=== PATIENT | female | born 1965 | race African-American/Black ===

== ENCOUNTER 2017-08-06 16:51 | Inpatient (IN) ==
[2017-08-06] MEDS ORDERED: ALBUTEROL/IPRATROPIUM 3 ML NEB RESP TX STA (17:22)
[2017-08-06] MEDS ORDERED: SODIUM CHLORIDE 0.9% 500 ML IV STA (17:22)
[2017-08-06 18:55] LABS: Apearance,Urine CLOUDY (Clear); Bilirubin,Urine Negative (Negative); Blood, Urine Large mg/dL (Negative); Glucose,Urine (UA) Negative (Negative); Ketones,Urine 5 mg/dL (Negative); Nitrite,Urine Negative (Negative); Protein,Urine 100 MG/DL; RBC,Urine 26429 /HPF (0-4); Urine Color Red (Yellow); Urine Specific Gravity 1.011 (1.001-1.035); Urine Urobilinogen < 2.0 EU/DL (0.2-1.0); WBC,Urine 332 /HPF (0-6)
[2017-08-06 19:01] LABS: Basophils % 0.2 % (0.0-0.8); Hematocrit 22.9 VOL% (35.7-47.0); Hemoglobin 7.4 GM/DL (12.0-16.0); Immature Granulocytes % 0.9 %; Immature Granulocytes Absolute 0.06 #; Lymphocytes # 0.5 10*3/uL (1.4-4.0); Lymphocytes % 7.6 % (21.3-54.2); Mean Corpuscular HGB Conc 32.3 GM/DL (32-36); Mean Corpuscular Hemoglobin 29 PG (27-34); Mean Corpuscular Volume 88.1 FL (87-102); Mean Platelet Volume 9.6 FL (9.6-12.0); Monocytes # 0.1 10*3/uL (0.11-0.8); Monocytes % 1.1 % (1.7-12.7); Neutrophils # 5.8 10*3/uL (1.4-7.4); Neutrophils % 90.2 % (38.7-73.9); Red Cell Distribution Width 16.9 % (9.3-17.3); White Blood Count 6.5 T/CUMM (4-12)
[2017-08-06 19:06] LABS: Platelet Count 11 T/CUMM (130-400)
[2017-08-06 19:11] LABS: INR 1.2; PT Patient Result 12.7 SECS; Partial Thromboplastin Time 26.6 SECS (0-40)
[2017-08-06 19:22] LABS: Albumin 2.5 G/DL (3.4-5.0); Bilirubin,Total 0.4 MG/DL (0.2-1.0); Osmolality,Calculated 274.7 MOS/KG (273-304); Potassium 3.7 MMOL/L (3.5-5.1); Total Protein 7.7 G/DL (6.4-8.3)
[2017-08-06 19:32] LABS: Lymphocytes 2 % (20-55); Segmented Neutrophils 98 % (50-85); Total Cells Counted 100
[2017-08-06 19:33] LABS: Hypochromasia 1+; Microcytosis 2+
[2017-08-06 19:34] LABS: Platelet Estimate Decreased; Polychromasia Few
[2017-08-06] MEDS ORDERED: ONDANSETRON 4 MG/2 ML VIAL IV PRN (22:57)
[2017-08-06] MEDS ORDERED: CALCIUM GLUCONATE 1,000 MG in SODIUM CHLORIDE 0.9% 100 ML IV ONE (22:57)
[2017-08-06] MEDS ORDERED: MORPHINE 2 MG/1 ML SYRINGE IV PRN (22:57)
[2017-08-06] MEDS ORDERED: SODIUM CHLORIDE 0.9% 1,000 ML IV PRN (22:57)
[2017-08-06] MEDS: SODIUM CHLORIDE 0.9% 1,000 ML IV SCH (23:35)
[2017-08-07] MEDS: methylPREDNISolone SOD SUC 125 MG/2 ML VIAL IV SCH ×2 (01:48→17:15)
[2017-08-07] MEDS ORDERED: diphenhydrAMINE 50 MG/1 ML VIAL IV ONE (03:42)
[2017-08-07] MEDS: ACETAMINOPHEN 325 MG TABLET PO PRN (03:56)
[2017-08-07] MEDS: CIPROFLOXACIN INJ 400 MG in PREMIX 1 EACH IV SCH ×3 (05:41→21:15)
[2017-08-07 06:31] LABS: Hemoglobin 6.5 GM/DL (12.0-16.0); Immature Granulocytes % 0.8 %; Immature Granulocytes Absolute 0.04 #; Lymphocytes # 0.4 10*3/uL (1.4-4.0); Lymphocytes % 7.3 % (21.3-54.2); Mean Corpuscular HGB Conc 32.5 GM/DL (32-36); Mean Corpuscular Hemoglobin 29 PG (27-34); Mean Corpuscular Volume 88.1 FL (87-102); Mean Platelet Volume 10.4 FL (9.6-12.0); Monocytes % 0.4 % (1.7-12.7); Neutrophils # 4.9 10*3/uL (1.4-7.4); Neutrophils % 91.5 % (38.7-73.9); Red Blood Count 2.27 MC/CUMM (3.8-5.5); Red Cell Distribution Width 16.9 % (9.3-17.3); White Blood Count 5.3 T/CUMM (4-12)
[2017-08-07 06:32] LABS: Platelet Count 82 T/CUMM (130-400)
[2017-08-07 06:56] LABS: Band Neutrophils 1 % (0-10); Giant Platelets Few; Hypochromasia 1+; Lymphocytes 4 % (20-55); Microcytosis Slight; Platelet Estimate Decreased; Segmented Neutrophils 95 % (50-85); Total Cells Counted 100
[2017-08-07 07:02] LABS: Calcium 8.3 MG/DL (8.5-10.1); Osmolality,Calculated 277.7 MOS/KG (273-304); Potassium 3.9 MMOL/L (3.5-5.1)
[2017-08-07] MEDS: PANTOPRAZOLE 40 MG VIAL IV SCH (09:40)
[2017-08-07] MEDS ORDERED: SODIUM CHLORIDE 0.9% 1,000 ML IV PRN (11:30)
[2017-08-07 11:32] LABS: % Iron Saturation 10.4 % (18-50)
[2017-08-07 11:42] LABS: Folate > 24.0 NG/ML (5.4-24.0); Vitamin B12 275 PG/ML (211-911)
[2017-08-07 11:53] LABS: Anti SS-A Antibodies < 16 EU/ML; Anti SS-B Antibodies < 16 EU/ML; Anti-Nuclear Antibody Pattern HOMOGENEOUS; Double Stranded DNA Antibodies < 25.0 IU/ML
[2017-08-07] MEDS: SODIUM CHLORIDE 0.9% 1,000 ML IV SCH ×2 (12:13→21:19)
[2017-08-07 12:16] LABS: Total Protein 7.7 G/DL (6.4-8.3)
[2017-08-08 05:47] LABS: Hematocrit 19.1 VOL% (35.7-47.0); Immature Granulocytes % 0.8 %; Immature Granulocytes Absolute 0.02 #; Lymphocytes # 0.4 10*3/uL (1.4-4.0); Lymphocytes % 15.5 % (21.3-54.2); Mean Corpuscular HGB Conc 32.5 GM/DL (32-36); Mean Corpuscular Hemoglobin 28 PG (27-34); Mean Corpuscular Volume 86.4 FL (87-102); Mean Platelet Volume 10.9 FL (9.6-12.0); Monocytes # 0.1 10*3/uL (0.11-0.8); Monocytes % 2.4 % (1.7-12.7); NRBC # 0.08 10*3/uL; Neutrophils # 2.1 10*3/uL (1.4-7.4); Neutrophils % 81.3 % (38.7-73.9); Red Blood Count 2.21 MC/CUMM (3.8-5.5); Red Cell Distribution Width 16.6 % (9.3-17.3); White Blood Count 2.5 T/CUMM (4-12)
[2017-08-08 05:56] LABS: Platelet Count 47 T/CUMM (130-400)
[2017-08-08] MEDS: CIPROFLOXACIN INJ 400 MG in PREMIX 1 EACH IV SCH ×2 (05:58→15:55)
[2017-08-08 05:59] LABS: Hemoglobin 6.2 GM/DL (12.0-16.0)
[2017-08-08 06:17] LABS: Calcium 7.8 MG/DL (8.5-10.1); Potassium 4.1 MMOL/L (3.5-5.1)
[2017-08-08 06:36] LABS: Hypochromasia 1+; Lymphocytes 13 % (20-55); Microcytosis 2+; Nucleated Red Blood Cells 4 (0-5); Segmented Neutrophils 83 % (50-85); Total Cells Counted 100
[2017-08-08 06:37] LABS: Platelet Estimate Decreased
[2017-08-08] MEDS ORDERED: diphenhydrAMINE 50 MG/1 ML VIAL ONE (08:08)
[2017-08-08] MEDS ORDERED: diphenhydrAMINE 50 MG/1 ML VIAL IV ONE (08:12)
[2017-08-08] MEDS ORDERED: SODIUM CHLORIDE 0.9% 1,000 ML IV PRN (08:14)
[2017-08-08] MEDS ORDERED: SODIUM CHLORIDE 0.9% 1,000 ML IV ONE (08:47)
[2017-08-08 09:48] LABS: ABG Base Excess -2.5 MMOL/L (-2.5-2.5); ABG HCO3 22.2 MMOL/L (20-26); ABG Oxygen Saturation 96.3 % (95-100); ABG PCO2 37.7 MM HG (35-48); ABG PH 7.388 (7.35-7.45); ABG PO2 91.3 MM HG (80-95); ABG TCO2 23.4 MMOL/L (23-27); Allen Test Positive; Pt O2 Delivery Device Room Air
[2017-08-08] MEDS: methylPREDNISolone SOD SUC 125 MG/2 ML VIAL IV SCH ×2 (10:43→21:07)
[2017-08-08] MEDS: PANTOPRAZOLE 40 MG VIAL IV SCH (10:43)
[2017-08-08] MEDS: FERROUS SULFATE 325 MG TABLET PO SCH ×2 (10:44→21:07)
[2017-08-08] MEDS: SODIUM CHLORIDE 0.9% 1,000 ML IV SCH ×4 (10:44→23:00)
[2017-08-08] MEDS ORDERED: GLUCAGON 1 MG VIAL IM PRN (11:57)
[2017-08-08] MEDS ORDERED: DEXTROSE 50% 25 GM/50 ML VIAL IV PRN (11:57)
[2017-08-08] MEDS: ZINC OXIDE PASTE 113 GM TUBE TOP PRN (13:30)
[2017-08-08] MEDS: INSULIN REGULAR 100 UNIT/ML SUBCUT SCH ×3 (14:20→21:07)
[2017-08-08] MEDS ORDERED: INSULIN REGULAR 100 UNIT/ML ONE (14:21)
[2017-08-08] MEDS: NYSTATIN 500,000 UNIT/5 ML UDCUP SWISH/SWAL SCH ×2 (16:49→21:06)
[2017-08-08 17:15] LABS: Hematocrit 29.4 VOL% (35.7-47.0)
[2017-08-08 17:19] LABS: Hemoglobin 10.1 GM/DL (12.0-16.0)
[2017-08-08] MEDS ORDERED: INSULIN REGULAR 100 UNIT/ML SUBCUT ONE (18:21)
[2017-08-08] MEDS: INSULIN GLARGINE 100 UNIT/ML SUBCUT SCH (21:08)
[2017-08-09] MEDS: CIPROFLOXACIN INJ 400 MG in PREMIX 1 EACH IV SCH ×3 (00:45→17:01)
[2017-08-09 04:36] LABS: Hematocrit 29.2 VOL% (35.7-47.0); Hemoglobin 9.9 GM/DL (12.0-16.0); Immature Granulocytes % 0.9 %; Immature Granulocytes Absolute 0.02 #; Lymphocytes # 0.5 10*3/uL (1.4-4.0); Lymphocytes % 20.3 % (21.3-54.2); Mean Corpuscular HGB Conc 33.9 GM/DL (32-36); Mean Corpuscular Hemoglobin 29 PG (27-34); Mean Corpuscular Volume 85.1 FL (87-102); Monocytes # 0.1 10*3/uL (0.11-0.8); Monocytes % 4.3 % (1.7-12.7); NRBC # 0.03 10*3/uL; Neutrophils # 1.7 10*3/uL (1.4-7.4); Neutrophils % 74.5 % (38.7-73.9); Platelet Count 41 T/CUMM (130-400); Red Blood Count 3.43 MC/CUMM (3.8-5.5); Red Cell Distribution Width 15.9 % (9.3-17.3); White Blood Count 2.3 T/CUMM (4-12)
[2017-08-09 05:21] LABS: Anisocytosis 1+; Poikilocytosis 1+
[2017-08-09 05:23] LABS: Albumin 2.4 G/DL (3.4-5.0); Bilirubin,Total 0.7 MG/DL (0.2-1.0); Calcium 7.9 MG/DL (8.5-10.1); Magnesium 2.3 MG/DL (1.8-2.4); Osmolality,Calculated 291.8 MOS/KG (273-304); Potassium 3.9 MMOL/L (3.5-5.1); Total Protein 6.5 G/DL (6.4-8.3)
[2017-08-09] MEDS: SODIUM CHLORIDE 0.9% 1,000 ML IV SCH ×3 (05:27→15:01)
[2017-08-09] MEDS: methylPREDNISolone SOD SUC 125 MG/2 ML VIAL IV SCH ×2 (09:03→22:32)
[2017-08-09] MEDS: FERROUS SULFATE 325 MG TABLET PO SCH ×2 (09:03→22:27)
[2017-08-09] MEDS: NYSTATIN 500,000 UNIT/5 ML UDCUP SWISH/SWAL SCH ×4 (09:03→22:26)
[2017-08-09] MEDS: INSULIN REGULAR 100 UNIT/ML SUBCUT SCH ×4 (09:05→22:24)
[2017-08-09] MEDS: INSULIN NPH/REGULAR 70/30 100 UNIT/ML SUBCUT SCH ×2 (09:05→12:55)
[2017-08-09] MEDS: PANTOPRAZOLE 40 MG VIAL IV SCH (09:13)
[2017-08-09] MEDS: ACETAMINOPHEN 325 MG TABLET PO PRN (15:00)
[2017-08-09] MEDS: INSULIN GLARGINE 100 UNIT/ML SUBCUT SCH (22:24)
[2017-08-10] MEDS: CIPROFLOXACIN INJ 400 MG in PREMIX 1 EACH IV SCH ×3 (00:15→18:06)
[2017-08-10] MEDS: SODIUM CHLORIDE 0.9% 1,000 ML IV SCH ×4 (01:33→22:29)
[2017-08-10 03:09] LABS: Eosinophils % 0.4 % (0.00-10.9); Hematocrit 29.5 VOL% (35.7-47.0); Hemoglobin 9.9 GM/DL (12.0-16.0); Immature Granulocytes % 1.7 %; Immature Granulocytes Absolute 0.04 #; Lymphocytes # 0.3 10*3/uL (1.4-4.0); Lymphocytes % 14.2 % (21.3-54.2); Mean Corpuscular HGB Conc 33.6 GM/DL (32-36); Mean Corpuscular Hemoglobin 30 PG (27-34); Mean Corpuscular Volume 88.1 FL (87-102); Mean Platelet Volume 10.7 FL (9.6-12.0); Monocytes # 0.1 10*3/uL (0.11-0.8); Monocytes % 3.3 % (1.7-12.7); Neutrophils # 1.9 10*3/uL (1.4-7.4); Neutrophils % 80.4 % (38.7-73.9); Platelet Count 79 T/CUMM (130-400); Red Blood Count 3.35 MC/CUMM (3.8-5.5); Red Cell Distribution Width 16.2 % (9.3-17.3); White Blood Count 2.4 T/CUMM (4-12)
[2017-08-10 04:14] LABS: Lymphocytes 18 % (20-55); Nucleated Red Blood Cells 1 (0-5); Segmented Neutrophils 81 % (50-85); Total Cells Counted 100
[2017-08-10 04:15] LABS: Hypochromasia 1+; Platelet Estimate Decreased
[2017-08-10] MEDS: methylPREDNISolone SOD SUC 125 MG/2 ML VIAL IV SCH ×2 (08:59→22:23)
[2017-08-10] MEDS: FERROUS SULFATE 325 MG TABLET PO SCH ×2 (08:59→22:28)
[2017-08-10] MEDS: PANTOPRAZOLE 40 MG VIAL IV SCH (08:59)
[2017-08-10] MEDS: NYSTATIN 500,000 UNIT/5 ML UDCUP SWISH/SWAL SCH ×4 (08:59→22:27)
[2017-08-10] MEDS: INSULIN REGULAR 100 UNIT/ML SUBCUT SCH ×4 (09:00→22:22)
[2017-08-10] MEDS: INSULIN NPH/REGULAR 70/30 100 UNIT/ML SUBCUT SCH ×2 (09:10→18:05)
[2017-08-10] MEDS ORDERED: LIDOCAINE 2% VISCOUS 100 ML BOTTLE SWISH/SPIT PRN (15:03)
[2017-08-10] MEDS: INSULIN GLARGINE 100 UNIT/ML SUBCUT SCH (22:25)
[2017-08-11] MEDS: CIPROFLOXACIN INJ 400 MG in PREMIX 1 EACH IV SCH ×4 (00:33→23:19)
[2017-08-11 05:44] LABS: Hematocrit 30.9 VOL% (35.7-47.0); Hemoglobin 10.6 GM/DL (12.0-16.0); Immature Granulocytes % 1.8 %; Immature Granulocytes Absolute 0.07 #; Lymphocytes # 0.5 10*3/uL (1.4-4.0); Lymphocytes % 11.9 % (21.3-54.2); Mean Corpuscular HGB Conc 34.3 GM/DL (32-36); Mean Corpuscular Hemoglobin 29 PG (27-34); Mean Corpuscular Volume 85.8 FL (87-102); Mean Platelet Volume 10.2 FL (9.6-12.0); Monocytes # 0.3 10*3/uL (0.11-0.8); Monocytes % 6.5 % (1.7-12.7); NRBC # 0.02 10*3/uL; Neutrophils # 3.1 10*3/uL (1.4-7.4); Neutrophils % 79.8 % (38.7-73.9); Red Cell Distribution Width 15.7 % (9.3-17.3); White Blood Count 3.9 T/CUMM (4-12)
[2017-08-11 05:49] LABS: Platelet Count 21 T/CUMM (130-400)
[2017-08-11 06:10] LABS: Hypochromasia 1+; Ovalocytes Slight; Platelet Estimate Decreased
[2017-08-11 06:11] LABS: Giant Platelets Few
[2017-08-11] MEDS: SODIUM CHLORIDE 0.9% 1,000 ML IV SCH ×2 (08:29→21:53)
[2017-08-11] MEDS: INSULIN NPH/REGULAR 70/30 100 UNIT/ML SUBCUT SCH ×2 (08:30→16:30)
[2017-08-11] MEDS: NYSTATIN 500,000 UNIT/5 ML UDCUP SWISH/SWAL SCH ×4 (08:30→21:55)
[2017-08-11] MEDS: INSULIN REGULAR 100 UNIT/ML SUBCUT SCH ×4 (08:30→21:54)
[2017-08-11] MEDS: PANTOPRAZOLE 40 MG VIAL IV SCH (08:31)
[2017-08-11] MEDS: FERROUS SULFATE 325 MG TABLET PO SCH ×2 (08:31→21:55)
[2017-08-11] MEDS: methylPREDNISolone SOD SUC 125 MG/2 ML VIAL IV SCH ×2 (08:40→21:55)
[2017-08-11 09:06] LABS: Albumin (SPE) 4.1 G/DL (3.2-5.3); Albumin (SPE) Rel % 52.9 %; Alpha 1 (SPE) 0.2 G/DL (0.1-0.4); Alpha 1 (SPE) Rel % 2.8 %; Alpha 2 (SPE) 0.7 G/DL (0.4-1.0); Alpha 2 (SPE) Rel % 9.3 %; Beta (SPE) 0.6 G/DL (0.5-1.1); Beta (SPE) Rel % 8.1 %; Gamma (SPE) 2.1 G/DL (0.7-1.7); Total Protein (Chem) 7.7 G/DL (6.4-8.3)
[2017-08-11 09:07] LABS: Gamma (SPE) Rel % 26.9 %
[2017-08-11 09:11] LABS: Immuno Free Light Chain Kappa 4.62 MG/DL (0.33-1.94); Immuno Free Light Chain Lambda 3.28 MG/DL (0.57-2.63); Immuno Free Light Chain Ratio 1.41 MG/DL (0.26-1.65)
[2017-08-11 09:25] LABS: Immunoglobulin A (Chem) 363 MG/DL (70-400); Immunoglobulin G (Chem) 2280 MG/DL (700-1600); Immunoglobulin M (Chem) 74 MG/DL (40-230)
[2017-08-11] MEDS: INSULIN GLARGINE 100 UNIT/ML SUBCUT SCH (21:54)
[2017-08-12 06:43] LABS: Basophils % 0.2 % (0.0-0.8); Hematocrit 31.2 VOL% (35.7-47.0); Hemoglobin 10.6 GM/DL (12.0-16.0); Immature Granulocytes % 1.1 %; Immature Granulocytes Absolute 0.07 #; Lymphocytes # 0.7 10*3/uL (1.4-4.0); Lymphocytes % 10.7 % (21.3-54.2); Mean Corpuscular Hemoglobin 29 PG (27-34); Mean Corpuscular Volume 85.7 FL (87-102); Monocytes # 0.6 10*3/uL (0.11-0.8); Monocytes % 8.7 % (1.7-12.7); NRBC # 0.02 10*3/uL; Neutrophils # 5.2 10*3/uL (1.4-7.4); Neutrophils % 79.3 % (38.7-73.9); Red Blood Count 3.64 MC/CUMM (3.8-5.5); Red Cell Distribution Width 16.1 % (9.3-17.3); White Blood Count 6.6 T/CUMM (4-12)
[2017-08-12 06:45] LABS: Platelet Count 29 T/CUMM (130-400)
[2017-08-12] MEDS: SODIUM CHLORIDE 0.9% 1,000 ML IV SCH (06:51)
[2017-08-12 07:08] LABS: Albumin 2.4 G/DL (3.4-5.0); Bilirubin,Total 0.6 MG/DL (0.2-1.0); Calcium 7.8 MG/DL (8.5-10.1); Osmolality,Calculated 280.5 MOS/KG (273-304); Potassium 3.3 MMOL/L (3.5-5.1)
[2017-08-12 07:09] LABS: Hypochromasia 1+; Microcytosis 1+; Platelet Estimate Decreased; Target Cells Slight
[2017-08-12] MEDS: ZINC OXIDE PASTE 113 GM TUBE TOP PRN (09:42)
[2017-08-12] MEDS: INSULIN REGULAR 100 UNIT/ML SUBCUT SCH ×4 (09:42→22:03)
[2017-08-12] MEDS: PANTOPRAZOLE 40 MG VIAL IV SCH (09:43)
[2017-08-12] MEDS: CIPROFLOXACIN INJ 400 MG in PREMIX 1 EACH IV SCH ×2 (09:43→16:53)
[2017-08-12] MEDS: methylPREDNISolone SOD SUC 125 MG/2 ML VIAL IV SCH ×2 (09:43→22:03)
[2017-08-12] MEDS: INSULIN NPH/REGULAR 70/30 100 UNIT/ML SUBCUT SCH ×2 (09:43→13:00)
[2017-08-12] MEDS: NYSTATIN 500,000 UNIT/5 ML UDCUP SWISH/SWAL SCH ×4 (09:44→22:03)
[2017-08-12] MEDS: FERROUS SULFATE 325 MG TABLET PO SCH ×2 (09:44→22:03)
[2017-08-12] MEDS ORDERED: cloNIDine 0.1 MG TABLET PO ONE (12:04)
[2017-08-12] MEDS: LOSARTAN 25 MG TABLET PO SCH (12:59)
[2017-08-12] MEDS ORDERED: POTASSIUM CHLORIDE 20 MEQ TABLET PO ONE (13:02)
[2017-08-12] MEDS ORDERED: hydrALAZINE 20 MG/1 ML VIAL IV PRN (13:02)
[2017-08-12 14:50] LABS: Ferritin 727.5 ng/ml (8-252)
[2017-08-12 15:37] LABS: HIV Antigen/Antibody Result Nonreactive (Nonreactive)
[2017-08-12 15:38] LABS: Hepatitis B Core Ab Result Negative (Negative); Hepatitis B Surface Ab Result Negative; Hepatitis B Surface Ag Quant 0.48 Index; Hepatitis B Surface Ag Result Negative (Negative); Hepatitis C Virus Ab Quant 0.26 Index; Hepatitis C Virus Ab Result Negative (Negative)
[2017-08-12] MEDS: LEUCOVORIN TAB 5 MG TABLET PO SCH (18:29)
[2017-08-12] MEDS: INSULIN GLARGINE 100 UNIT/ML SUBCUT SCH (22:03)
[2017-08-13] MEDS: CIPROFLOXACIN INJ 400 MG in PREMIX 1 EACH IV SCH ×3 (00:36→17:20)
[2017-08-13] MEDS: LEUCOVORIN TAB 5 MG TABLET PO SCH ×4 (00:36→17:21)
[2017-08-13 06:42] LABS: Basophils % 0.3 % (0.0-0.8); Hematocrit 31.9 VOL% (35.7-47.0); Immature Granulocytes % 2.4 %; Immature Granulocytes Absolute 0.19 #; Mean Corpuscular HGB Conc 34.5 GM/DL (32-36); Mean Corpuscular Hemoglobin 29 PG (27-34); Mean Corpuscular Volume 85.1 FL (87-102); Mean Platelet Volume 12.5 FL (9.6-12.0); Monocytes # 1.5 10*3/uL (0.11-0.8); Monocytes % 18.4 % (1.7-12.7); Neutrophils # 5.2 10*3/uL (1.4-7.4); Neutrophils % 65.9 % (38.7-73.9); Platelet Count 67 T/CUMM (130-400); Red Blood Count 3.75 MC/CUMM (3.8-5.5); Red Cell Distribution Width 16.7 % (9.3-17.3); White Blood Count 7.9 T/CUMM (4-12)
[2017-08-13 07:08] LABS: Hypochromasia 1+; Lymphocytes 11 % (20-55); Platelet Estimate Decreased; Segmented Neutrophils 75 % (50-85); Total Cells Counted 100
[2017-08-13 07:13] LABS: Albumin 2.5 G/DL (3.4-5.0); Bilirubin,Total 0.5 MG/DL (0.2-1.0); Calcium 7.9 MG/DL (8.5-10.1); Osmolality,Calculated 279.4 MOS/KG (273-304); Potassium 3.6 MMOL/L (3.5-5.1); Total Protein 7.1 G/DL (6.4-8.3)
[2017-08-13] MEDS: INSULIN REGULAR 100 UNIT/ML SUBCUT SCH ×4 (08:46→21:30)
[2017-08-13] MEDS ORDERED: FOLIC ACID 1 MG TABLET PO SCH (09:00)
[2017-08-13 09:12] LABS: Hepatitis A Ab IgM Quant 0.07 Index; Hepatitis A Ab IgM Result Negative (Negative); Hepatitis B Core IgM Quant 0.06 Index; Hepatitis B Core IgM Result Negative (Negative); Hepatitis B Surface Ag Quant < 0.10 Index; Hepatitis B Surface Ag Result Negative (Negative); Hepatitis C Virus Ab Quant 0.18 Index; Hepatitis C Virus Ab Result Negative (Negative)
[2017-08-13] MEDS: PANTOPRAZOLE 40 MG VIAL IV SCH (09:54)
[2017-08-13] MEDS: methylPREDNISolone SOD SUC 125 MG/2 ML VIAL IV SCH ×2 (09:54→21:31)
[2017-08-13] MEDS: NYSTATIN 500,000 UNIT/5 ML UDCUP SWISH/SWAL SCH ×4 (09:55→21:31)
[2017-08-13] MEDS: FERROUS SULFATE 325 MG TABLET PO SCH ×2 (09:55→21:31)
[2017-08-13] MEDS: FOLIC ACID 1 MG TABLET PO SCH ×2 (09:55→17:22)
[2017-08-13] MEDS: LOSARTAN 25 MG TABLET PO SCH (09:55)
[2017-08-13] MEDS: INSULIN NPH/REGULAR 70/30 100 UNIT/ML SUBCUT SCH ×2 (11:31→11:38)
[2017-08-13] MEDS: INSULIN GLARGINE 100 UNIT/ML SUBCUT SCH (21:30)
[2017-08-14] MEDS: FOLIC ACID 1 MG TABLET PO SCH ×3 (00:52→16:52)
[2017-08-14] MEDS: CIPROFLOXACIN INJ 400 MG in PREMIX 1 EACH IV SCH ×3 (00:52→16:06)
[2017-08-14] MEDS: LEUCOVORIN TAB 5 MG TABLET PO SCH ×3 (00:53→13:16)
[2017-08-14 04:15] LABS: Basophils % 0.2 % (0.0-0.8); Eosinophils % 0.1 % (0.00-10.9); Hematocrit 30.2 VOL% (35.7-47.0); Hemoglobin 10.3 GM/DL (12.0-16.0); Immature Granulocytes % 3.8 %; Immature Granulocytes Absolute 0.34 #; Lymphocytes # 1.1 10*3/uL (1.4-4.0); Lymphocytes % 11.8 % (21.3-54.2); Mean Corpuscular HGB Conc 34.1 GM/DL (32-36); Mean Corpuscular Hemoglobin 29 PG (27-34); Mean Corpuscular Volume 85.1 FL (87-102); Mean Platelet Volume 12.5 FL (9.6-12.0); Monocytes # 2.2 10*3/uL (0.11-0.8); Monocytes % 24.7 % (1.7-12.7); NRBC # 0.02 10*3/uL; Neutrophils # 5.3 10*3/uL (1.4-7.4); Neutrophils % 59.4 % (38.7-73.9); Platelet Count 124 T/CUMM (130-400); Red Blood Count 3.55 MC/CUMM (3.8-5.5); Red Cell Distribution Width 16.9 % (9.3-17.3); White Blood Count 8.9 T/CUMM (4-12)
[2017-08-14 04:50] LABS: Band Neutrophils 2 % (0-10); Eosinophils 1 % (0-10); Lymphocytes 12 % (20-55); Metamyelocytes 1 %; Myelocytes 1 %; Segmented Neutrophils 63 % (50-85); Total Cells Counted 100
[2017-08-14 04:51] LABS: Giant Platelets Few; Hypochromasia 1+; Microcytosis Slight; Ovalocytes Slight; Platelet Estimate Normal
[2017-08-14 04:58] LABS: Albumin 2.4 G/DL (3.4-5.0); Bilirubin,Total 0.6 MG/DL (0.2-1.0); Calcium 7.9 MG/DL (8.5-10.1); Osmolality,Calculated 282.4 MOS/KG (273-304); Potassium 3.6 MMOL/L (3.5-5.1); Total Protein 6.6 G/DL (6.4-8.3)
[2017-08-14] MEDS ORDERED: LOSARTAN 50 MG TABLET PO SCH (09:00)
[2017-08-14] MEDS: INSULIN REGULAR 100 UNIT/ML SUBCUT SCH ×3 (09:27→16:52)
[2017-08-14] MEDS: NYSTATIN 500,000 UNIT/5 ML UDCUP SWISH/SWAL SCH ×2 (09:27→13:19)
[2017-08-14] MEDS: INSULIN NPH/REGULAR 70/30 100 UNIT/ML SUBCUT SCH ×2 (09:32→13:16)
[2017-08-14] MEDS: methylPREDNISolone SOD SUC 125 MG/2 ML VIAL IV SCH (09:33)
[2017-08-14] MEDS: FERROUS SULFATE 325 MG TABLET PO SCH (09:34)
[2017-08-14 16:53] VITALS: BP 188/85
== END 2017-08-14 17:45 | disposition home health service (06) | DRG 660 ==
LOC: EDUNIT# → EDBD → N.ED 16:51 → SUATTDRO 20:00 → N.EDINP 20:00 → N.2E 20:38 → N.ICU 08-08 09:32 → N.4E 08-09 14:43
PROVIDERS: ADMIT Internal Medicine Infectious Disease; ATTEND Family Medicine